=== PATIENT | male | born 1990 | race Two or more races ===

== ENCOUNTER 2020-03-23 06:24 | Emergency (ER) | payer SELFPAY ==
[2020-03-23 06:48] VITALS: BMI 27.4
--- NOTE | 2020-03-23 07:21 | PDOC ---
Attending Attestation - Resident Resident Name: Leila Pérez - ED Attending Attestation I have performed the following: I have examined & evaluated the patient, The case was reviewed & discussed with the resident, I agree w/resident's findings & plan, Exceptions are as noted - HPI HPI: 03/23/20 07:12 29YOM with h/o fat-containing umbilical hernia, occasional tobacco smoker, who p/w intermittent lightheadedness/dizziness x3 days onset while he was working nausea and generalized weakness, but no vomiting, diarrhea, cough, SOB, chest pain, sore throat, trouble swallowing, fever, chills, muscle aches, or other symptoms. Decided to come in today because it has just not been getting better. Requests bloodwork. - Physicial Exam PE: 03/23/20 07:13 GENERAL: well-appearing, A/Ox4, no distress, answers questions appropriately, Moldovan speaking, accompanied by fruit rancher HEENT: PERRLA, EOMI, moist mucous membranes NECK/BACK: no midline ttp, no spinal stepoff or deformity, no hematoma, full ROM, neck supple CARDIOVASCULAR: regular rate/rhythm, no MGR, strong peripheral pulses, capillary refill <2 seconds, extremities wwp, no edema LUNGS/RESPIRATORY: no respiratory distress, CTAB GI/ABDOMEN: symmetric [id number], normoactive BS, soft, no ttp, no midline pulsatile masses : no CVA tenderness MSK/EXTREMITIES: no muscle atrophy, no acute deformity SKIN: warm and dry, no pallor, no jaundice, no rash, no pathologic-appearing bruising, no skin breakdown, no cuts, no lesions NEUROLOGICAL: GCS 15, normal extinguishing horizontal nystagmus on extreme horizontal gaze, CN II-XII grossly intact, 5/5 strength proximally and distally, no facial droop, normal gait - Medical Decision Making 03/23/20 07:27 29YOM without significant PMH, drinks EtOH (states 10 beers/day at baseline and last drink on 03/14/2020), who p/w intermittent nausea & lightheadedness (no vertigo) & generalized weakness ongoing x3 days. Initial Vital Signs Temp Pulse Resp BP Pulse Ox 98.4 F 66 16 131/93 99 03/23/20 06:41 03/23/20 06:41 03/23/20 06:41 03/23/20 06:41 03/23/20 06:41 Exam benign. DDX includes but not limited to orthostasis, viral syndrome, rhabdomyolysis, DKA, EtOH withdrawal. Will get CBC, CMP, cardiac panel, EKG, give IVF, re-assess, and discuss w/ shared decision making prior to dispo decision. Laboratory Tests 03/23/20 03/23/20 03/23/20 08:00 08:00 08:00 WBC 8.4 RBC 4.89 Hgb 14.6 Hct 43.4 MCV 88.9 MCH 30.0 MCHC 33.7 RDW 14.0 Plt Count 169 MPV 9.8 Absolute Neuts (auto) 5.5 Neutrophils % 64.8 Lymphocytes % 27.6 Monocytes % 6.9 Eosinophils % 0.4 Basophils % 0.3 Nucleated RBC % 0 Sodium 141 Potassium 3.7 Chloride 106 Carbon Dioxide 28 Anion Gap 7 L BUN 19.5 H Creatinine 0.9 Est GFR (CKD-EPI)AfAm 133.30 Est GFR (CKD-EPI)NonAf 115.01 Random Glucose 99 Calcium 8.9 Total Bilirubin 0.6 AST 19 ALT 31 Alkaline Phosphatase 69 Creatine Kinase 83 Troponin I < 0.02 Total Protein 8.2 Albumin 4.4 Group A Strep Rapid Negative 03/23/20 09:35 Patient states feeling much better at this time. Has received 1 L IVF, labs not concerning other than initial dehydration pattern BUN/Cr. Patient states he is self-pay and thus has not been able to f/u with PCP lately. Social Work comes to see the patient in the ED and provides resources. He is appropriate for discharge home. Return precautions discussed, he is advised to stay well hydrated and minimize heat exposure while working if dizzy. Heart Score/ECG Review #1 03/23/20 08:15 Sinus rhythm, rate 52, normal axis and intervals, TWI III and aVR, no ischemic ST-T changes. Discharge - Discharge Information Problems reviewed: Yes Clinical Impression/Diagnosis: Weakness, Dehydration Condition: Stable Disposition: HOME - Admission No - Follow up/Referral Referrals: [facility] [place] [Provider Group] - Patient Discharge Instructions Patient Printed Discharge Instructions: DI for Muscle Weakness Additional Instructions: You were seen in the ED today for weakness and nausea You were given a physical exam, labs, an EKG, and fluids. Your labs came back normal. Make sure you drink enough water and stay hydrated. Please return to the ED with any new or worsening symptoms. A referral was given to you to follow-up with the [facility]. - Post Discharge Activity
[2020-03-23] MEDS ORDERED: SODIUM CHLORIDE 1,000 ML IV STA (07:31)
--- NOTE | 2020-03-23 07:54 | PDOC ---
History of Present Illness - General Chief Complaint: Lightheaded Stated Complaint: DIZZY Time Seen by Provider: 03/23/20 07:03 History Source: Patient Exam Limitations: Language Barrier (Brake Lining Maker used) - History of Present Illness Initial Comments: 03/23/20 07:49 HPI: This is a 29 y/o male with no reported PMH presenting to the ED due to 3 days of weakness and intermittent nausea but no vomiting. 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 He lives with his girlfriend and denies any sick contacts or recent travel. He reports drinking 10-13 beers a day, but states he hasn't had a drink since last Monday. He denies anorexia, chest pain, SOB, abdominal pain, diarrhea, constipation, or fever. He came to the ER today because he wasn't getting better and wants labwork. 03/23/20 07:56 PMH: Denied PSH: Denied Meds: Denied Allergies: Denied Social Hx: 10-13 beers daily, no use since last Monday03/23/20 18:14 Past History - Medical History Allergies/Adverse Reactions: Allergies Allergy/AdvReac Type Severity Reaction Status Date / Time No Known Allergies Allergy Verified 03/23/20 06:48 Home Medications: Ambulatory Orders Ibuprofen [Motrin -] 600 mg PO QID PRN #28 tablet 10/06/15 Oxycodone HCl/Acetaminophen [Percocet 5/325 -] 1 tab PO Q4H PRN #20 tablet 10/06/15 - Immunization History Immunization Up to Date: No - Psycho-Social/Smoking History Smoking History: Current some day smoker Number of Cigarettes Smoked Daily: 2 Information on smoking cessation initiated: No - Substance Abuse Hx (Audit-C & DAST Scrn) How often the patient has a drink containing alcohol: Monthly or less Number of drinks the patient has on a typical day: 1 or 2 How often the patient has six or more drinks on one occasion: Less than monthly Score: In Men: 4 or > Positive; In Women: 3 or > Positive: 2 Screen Result (Pos requires Nsg. Audit-10AR): Negative In the last yr the pt used illegal drug/Rx for NonMed reason: No Score: Yes response is considered Positive: 0 Screen Result (Positive result requires Nsg. DAST-10): Negative Review of Systems - Review of Systems Is the patient limited Solomon Islander proficient: Yes Constitutional: Yes: Weakness. No: Chills, Fever, Loss of Appetite HEENTM: No: Double Vision, Nose Congestion, Difficulty Swallowing Respiratory: No: Cough, Shortness of Breath, Wheezing, Productive cough Cardiac (ROS): Yes: Lightheadedness. No: Chest Pain, Palpitations ABD/GI: Yes: Nausea. No: Constipated, Diarrhea, Vomiting : No: Burning, Dysuria Musculoskeletal: Yes: Muscle Weakness. No: Muscle Pain Neurological: No: Headache, Dizziness Endocrine: No: Excessive Sweating, Change in Weight Hematologic/Lymphatic: No: Anemia, Swollen Glands *Physical Exam - Vital Signs Last Vital Signs Temp Pulse Resp BP Pulse Ox 98.4 F 66 16 131/93 99 03/23/20 06:41 03/23/20 06:41 03/23/20 06:41 03/23/20 06:41 03/23/20 06:41 - Physical Exam General Appearance: Yes: Nourished, Appropriately Dressed. No: Intoxicated HEENT: positive: EOMI. negative: Tonsillar Exudate, Tonsillar Erythema Neck: positive: Trachea midline, Supple Respiratory/Chest: positive: Lungs Clear, Normal Breath Sounds Cardiovascular: positive: Regular Rhythm, Regular Rate, S1, S2 Gastrointestinal/Abdominal: positive: Normal Bowel Sounds. negative: Guarding, Rebound, Tenderness Musculoskeletal: negative: CVA Tenderness (R), CVA Tenderness (L) Extremity: positive: Normal Capillary Refill, Normal Inspection Integumentary: positive: Normal Color. negative: Clammy Heart Score/ECG Review - History History: Slightly suspicious - Electrocardiogram EKG: Normal - Age Age: </= 45 - Risk Factors Based on the list above the patient has:: No risk factors known - Troponin Troponin: </= normal limit - Score Heart Score - Total: 0 - ECG Intrepretation Comment:: 03/23/20 09:07 EKG shows sinus bradycardia with ventricular rate of 52bpm. DC interval is 126ms. QRS duration of 104ms. QT/QTc 440/409. No old EKG for comparison. ED Treatment Course - LABORATORY CBC & Chemistry Diagram: 03/23/20 08:00 03/23/20 08:00 Medical Decision Making - Medical Decision Making 03/23/20 07:55 This is a 29 y/o male with no PMH, primarily algerian speaking, who works construction. He is complaining of persistent weakness with intermittent nausea for the past 3 days. 03/23/20 07:56 Atypical ACS vs rhabdomyolysis vs viral illness vs dehydration EKG and cardiac profile - Heart score of 0 CBC and BMP 1L fluids Patient requested an HIV test 03/23/20 10:08 CBC WBC 8.4 K/mm3 (4.0-10.0) 03/23/20 08:00 RBC 4.89 M/mm3 (4.00-5.60) 03/23/20 08:00 Hgb 14.6 GM/dL (11.7-16.9) 03/23/20 08:00 Hct 43.4 % (35.4-49) 03/23/20 08:00 MCV 88.9 fl (80-96) 03/23/20 08:00 MCH 30.0 pg (25.7-33.7) 03/23/20 08:00 MCHC 33.7 g/dl (32.0-35.9) 03/23/20 08:00 RDW 14.0 % (11.9-15.9) 03/23/20 08:00 Plt Count 169 K/MM3 (134-434) 03/23/20 08:00 MPV 9.8 fl (7.5-11.1) 03/23/20 08:00 Absolute Neuts (auto) 5.5 K/mm3 (1.5-8.0) 03/23/20 08:00 Neutrophils % 64.8 % (42.8-82.8) 03/23/20 08:00 Lymphocytes % 27.6 % (8-40) 03/23/20 08:00 Monocytes % 6.9 % (3.8-10.2) 03/23/20 08:00 Eosinophils % 0.4 % (0-4.5) 03/23/20 08:00 Basophils % 0.3 % (0-2.0) 03/23/20 08:00 Nucleated RBC % 0 % (0-0) 03/23/20 08:00 No elevated white cell count, no anemia CMP Sodium 141 mmol/L (136-145) 03/23/20 08:00 Potassium 3.7 mmol/L (3.5-5.1) 03/23/20 08:00 Chloride 106 mmol/L (98-107) 03/23/20 08:00 Carbon Dioxide 28 mmol/L (21-32) 03/23/20 08:00 Anion Gap 7 MMOL/L (8-16) L 03/23/20 08:00 BUN 19.5 mg/dL (7-18) H 03/23/20 08:00 Creatinine 0.9 mg/dL (0.55-1.3) 03/23/20 08:00 Est GFR (CKD-EPI)AfAm 133.30 03/23/20 08:00 Est GFR (CKD-EPI)NonAf 115.01 03/23/20 08:00 Random Glucose 99 mg/dL (74-106) 03/23/20 08:00 Calcium 8.9 mg/dL (8.5-10.1) 03/23/20 08:00 Total Bilirubin 0.6 mg/dL (0.2-1) 03/23/20 08:00 AST 19 U/L (15-37) 03/23/20 08:00 ALT 31 U/L (13-61) 03/23/20 08:00 Alkaline Phosphatase 69 U/L (45-117) 03/23/20 08:00 Creatine Kinase 83 U/L (26-308) 03/23/20 08:00 Troponin I < 0.02 ng/ml (0.00-0.05) 03/23/20 08:00 Total Protein 8.2 g/dl (6.4-8.2) 03/23/20 08:00 Albumin 4.4 g/dl (3.4-5.0) 03/23/20 08:00 BUN elevated, suspected dehydration Troponin, BNP 03/23/20 08:00 Troponin I < 0.02 Troponin negative Will have social work talk to patient about resources and physician follow-up 03/23/20 10:35 Patient is stable with negative labs, EKG, and troponin Will be given follow-up with [facility] Discharge - Discharge Information Problems reviewed: Yes Clinical Impression/Diagnosis: Weakness, Dehydration Condition: Stable Disposition: HOME - Admission No - Follow up/Referral Referrals: [facility] [place] [facility] [place] [Provider Group] - Patient Discharge Instructions Patient Printed Discharge Instructions: DI for Dehydration -- Adult, DI for Muscle Weakness Additional Instructions: You were seen in the ED today for weakness and nausea You were given a physical exam, labs, an EKG, and fluids. Your labs came back normal. Make sure you drink enough water and stay hydrated. A referral was given to you to follow-up with the [facility]. Please follow-up with them in the next few days. Please return to the ED with any new or worsening symptoms. - Post Discharge Activity
[2020-03-23 08:57] LABS: BASO % 0.3 % (0-2.0); EOS % 0.4 % (0-4.5); HEMATOCRIT 43.4 % (35.4-49); HEMOGLOBIN 14.6 GM/dL (11.7-16.9); LYMPH % 27.6 % (8-40); MCHC 33.7 g/dl (32.0-35.9); MEAN CELL VOLUME 88.9 fl (80-96); MEAN PLT VOLUME 9.8 fl (7.5-11.1); MONO % 6.9 % (3.8-10.2); NEUT % 64.8 % (42.8-82.8); PLATELET COUNT 169 K/MM3 (134-434); RBC 4.89 M/mm3 (4.00-5.60); WHITE BLOOD COUNT 8.4 K/mm3 (4.0-10.0)
[2020-03-23 09:29] LABS: ALBUMIN 4.4 g/dl (3.4-5.0); ALK PHOS 69 U/L (45-117); ANION GAP 7 MMOL/L (8-16); BILIRUBIN,TOTAL 0.6 mg/dL (0.2-1); BLOOD UREA NITROGEN 19.5 mg/dL (7-18); CALCIUM 8.9 mg/dL (8.5-10.1); CHLORIDE 106 mmol/L (98-107); CO2 28 mmol/L (21-32); CREATININE 0.9 mg/dL (0.55-1.3); GLUCOSE,RANDOM 99 mg/dL (74-106); POTASSIUM 3.7 mmol/L (3.5-5.1); SGOT/AST 19 U/L (15-37); SODIUM 141 mmol/L (136-145); TOT PROT 8.2 g/dl (6.4-8.2)
[2020-03-23 09:30] LABS: SGPT/ALT 31 U/L (13-61)
--- NOTE | 2020-03-23 09:32 | EKG ---
Test Reason : Blood Pressure : / mmHG Vent. Rate : 052 BPM Atrial Rate : 052 BPM P-R Int : 126 ms QRS Dur : 104 ms QT Int : 440 ms P-R-T Axes : 018 028 010 degrees QTc Int : 409 ms SINUS BRADYCARDIA OTHERWISE NORMAL ECG NO PREVIOUS ECGS AVAILABLE Confirmed by Enid Garcia ([id number]) on 03/23/2020 9:32:10 AM Referred By: Confirmed By:Enid Garcia
[2020-03-23 10:15] VITALS: BP 118/73; PULSE 57; TEMP 98.9
== END 2020-03-23 10:56 | disposition home or self-care (01) ==
LOC: JER 06:24
PROC: 3E0337Z Introduction of Electrolytic and Water Balance Substance into Peripheral Vein, Percutaneous Approach (ICD-10-PCS; principal; 2020-03-23)
DX: R53.1 Weakness (principal); E86.0 Dehydration
CPT/HCPCS: 36415; 80053; 82550; 84484; 85025; 87070; 87389; 87880; 93005; 93010; 96360; 99284-25

== ENCOUNTER 2020-03-25 07:08 | Emergency (ER) | payer SELFPAY ==
[2020-03-25 07:35] VITALS: BMI 27.9
[2020-03-25] MEDS ORDERED: SODIUM CHLORIDE 1,000 ML IV STA (09:20)
[2020-03-25 09:39] LABS: BASO % 0.3 % (0-2.0); EOS % 0.5 % (0-4.5); HEMATOCRIT 40.9 % (35.4-49); LYMPH % 28.6 % (8-40); MCH 30.9 pg (25.7-33.7); MCHC 34.2 g/dl (32.0-35.9); MEAN CELL VOLUME 90.2 fl (80-96); MEAN PLT VOLUME 10.4 fl (7.5-11.1); MONO % 7.3 % (3.8-10.2); NEUT % 63.3 % (42.8-82.8); PLATELET COUNT 158 K/MM3 (134-434); RBC 4.53 M/mm3 (4.00-5.60); RDW 14.1 % (11.9-15.9); WHITE BLOOD COUNT 6.9 K/mm3 (4.0-10.0)
[2020-03-25 10:04] VITALS: BP 122/78; PULSE 59; TEMP 98.9
[2020-03-25 10:09] LABS: ALBUMIN 4.1 g/dl (3.4-5.0); BILIRUBIN,TOTAL 0.4 mg/dL (0.2-1); CALCIUM 8.9 mg/dL (8.5-10.1); CREATININE 0.8 mg/dL (0.55-1.3); POTASSIUM 3.7 mmol/L (3.5-5.1); TOT PROT 7.7 g/dl (6.4-8.2)
--- NOTE | 2020-03-25 10:50 | PDOC ---
Documentation entered by Joaquim Phelps SCRIBE, acting as scribe for Samir Pike MD. Samir Pike MD: This documentation has been prepared by the Casandra little inJoaquim SCRIBE, under my direction and personally reviewed by me in its entirety. I confirm that the documentation accurately reflects all work, treatment, procedures, and medical decision making performed by me. History of Present Illness - General Chief Complaint: Cold Symptoms Stated Complaint: VOMITING BLOOD Time Seen by Provider: 03/25/20 08:12 History Source: Patient Exam Limitations: No Limitations - History of Present Illness Initial Comments: 03/25/20 09:27 The patient is a 29y/o M with a PMH of fat-containing umbilical hernia, occasional tobacco smoker, who presents to the ER for dizziness and generalized weakness x5 days. Pt was seen here in the ED Monday03/23/20 for similar symptoms, received 1 L IVF, and discharged home after symptoms improved. Pt rep orts his throat is dry while sleeping at night and coughed up specs of blood when trying to clear his throat this morning. Pt endorses mild night sweats and feeling a heavy head yesterday. 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 The patient denies shortness of breath and chest pain. Denies fever, chills and/or any GI symptoms. Denies any symptoms. Denies any other symptoms. Allergies: NKDA PCP: None Past History - Medical History Allergies/Adverse Reactions: Allergies Allergy/AdvReac Type Severity Reaction Status Date / Time No Known Allergies Allergy Verified 03/25/20 07:28 Home Medications: Ambulatory Orders Ibuprofen [Motrin -] 600 mg PO QID PRN #28 tablet 10/06/15 Oxycodone HCl/Acetaminophen [Percocet 5/325 -] 1 tab PO Q4H PRN #20 tablet 10/06/15 COPD: No - Immunization History Immunization Up to Date: No - Psycho-Social/Smoking History Smoking History: Never smoked Have you smoked in the past 12 months: No Number of Cigarettes Smoked Daily: 2 Information on smoking cessation initiated: No - Substance Abuse Hx (Audit-C & DAST Scrn) How often the patient has a drink containing alcohol: Never Score: In Men: 4 or > Positive; In Women: 3 or > Positive: 0 Screen Result (Pos requires Nsg. Audit-10AR): Negative In the last yr the pt used illegal drug/Rx for NonMed reason: No Score: Yes response is considered Positive: 0 Screen Result (Positive result requires Nsg. DAST-10): Negative Review of Systems - Review of Systems Comments:: 03/25/20 09:27 CONSTITUTIONAL: +generalized weakness. +night sweats. No fever EYES: No visual changes ENT: No ear pain, no sore throat CARDIOVASCULAR: No chest pain, no palpitations RESPIRATORY: + coughs up blood. no SOB GI: No abdominal pain, no nausea, no vomiting, no constipation, no diarrhea GENITOURINARY: No dysuria, no frequency, no hematuria MUSKULOSKELETAL: No back pain, no joint pain, no myalgias SKIN: No rash NEURO: No headache All Other Systems: Reviewed and Negative *Physical Exam - Vital Signs Last Vital Signs Temp Pulse Resp BP Pulse Ox 99.2 F 52 L 18 129/81 99 03/25/20 07:22 03/25/20 07:22 03/25/20 07:22 03/25/20 07:22 03/25/20 07:22 - Physical Exam 03/25/20 09:27 CONSTITUTIONAL: Well-appearing; well-nourished; in no apparent distress HEAD: Normocephalic; atraumatic EYES: PERRL; EOM intact ENMT: External appears normal; normal oropharynx NECK: Supple; non-tender; no cervical lymphadenopathy CARD: Normal S1, S2; no murmurs, rubs, or gallops RESP: Normal chest excursion with respiration; breath sounds clear and equal bilaterally; no wheezes, rhonchi, or rales ABD: Soft, non-distended; non-tender; no palpable organomegaly, no palpable hernias EXT: Normal ROM in all four extremities; non-tender to palpation; distal pulses intact SKIN: Warm, dry, no rash NEURO: No focal neurological deficiencies. ED Treatment Course - LABORATORY CBC & Chemistry Diagram: 03/25/20 09:30 03/25/20 09:30 Medical Decision Making - Medical Decision Making 03/25/20 10:47 Patient is a 29-year-old male who presents to the ER with generalized weakness as well as a complaint of mild hemoptysis that occurs upon awakening. Patient also reports mild night sweats. There is no history of TB or TB exposure as per patient. In the ER, patient is awake and alert, nontoxic-appearing, in no distress. Chest x-ray reveals no evidence of infiltrate or effusion. CBC/CMP are within normal limit. I do not suspect acute micro or bacterial infection. However, will place PPD and will discharge with outpatient follow-up. Discharge - Discharge Information Problems reviewed: Yes Clinical Impression/Diagnosis: Hemoptysis Condition: Stable Disposition: HOME - Follow up/Referral - Patient Discharge Instructions Patient Printed Discharge Instructions: DI for Hemoptysis Additional Instructions: You have been given a PPD, which is a test for tuberculosis exposure. Please come back and 48 hours to have the results interpreted. Return immediately for high fever, severe shortness of breath, increased coughing of blood. - Post Discharge Activity
== END 2020-03-25 10:50 | disposition home or self-care (01) ==
LOC: JER 07:08
PROC: 3E0337Z Introduction of Electrolytic and Water Balance Substance into Peripheral Vein, Percutaneous Approach (ICD-10-PCS; principal; 2020-03-25)
DX: R04.2 Hemoptysis (principal)
CPT/HCPCS: 36415; 71046-TC-FY; 80053; 85025; 99284-25

== ENCOUNTER 2022-03-25 18:18 | Emergency (ER) | payer OTHER ==
[2022-03-25 19:02] VITALS: BP 148/70; PULSE 63; TEMP 99.7; BMI 25.8
[2022-03-25] MEDS ORDERED: DEXAMETHASONE LIQUID 0.5 MG/5 ML PO ONE (19:36)
[2022-03-25] MEDS ORDERED: DEXAMETHASONE SOD PHOSPHATE 10 MG/1 ML VIAL ONE (19:55)
== END 2022-03-25 21:47 | disposition home or self-care (01) ==
LOC: JER 18:18
DX: R09.89 Other specified symptoms and signs involving the circulatory and respiratory systems (principal)
CPT/HCPCS: 70360-TC-FY; 70490-TC; 87651; 99285-25